=== PATIENT | female | born 1955 | race Caucasian/White ===

== ENCOUNTER 2017-01-16 07:58 | Day surgery (SDC) | payer OTHER ==
[~2017-01-16] VITALS: Ht 170.2 cm; Wt 113.8 kg
[~2017-01-16 07:58] MED LIST: 0.9% Sodium Chloride 1,000 ML IV SCH; LOSA50TA37 PO; METF500T4 PO; MINO50CA2 PO; Sodium Chloride LOK Flush 10 mL Syringe IV PRN; fentaNYL-PF 50 mCg/mL 2 mL Inj IVPUSH PRN
[2017-01-16 09:01] VITALS: BP 161/86; PULSE 88; RESP 18; O2SAT 99
[2017-01-16 09:50] VITALS: BP 126/65; PULSE 82; RESP 16; O2SAT 95
[2017-01-16 10:00] VITALS: BP 123/67; PULSE 81; RESP 16; O2SAT 94
[2017-01-16 10:10] VITALS: BP 92/47; PULSE 79; RESP 16; O2SAT 97
--- NOTE | 2017-01-16 10:43 | ENDO ---
[address] [address] ENDOSCOPY PROCEDURE PATIENT: YOLANDA SANCHEZ : 1955 MR#: [id number] ADMIT: 01/16/2017 JOB ID: [id number] DATE OF SERVICE: 01/16/2017 TYPE OF OPERATION: Colonoscopy with biopsy. PREOPERATIVE DIAGNOSIS(ES): Change in bowel habits. POSTOPERATIVE DIAGNOSIS(ES): 1. Small internal hemorrhoids. 2. An 8 mm, flat-based polyp seen in the ascending colon, status post biopsy. ANESTHESIA: Fentanyl 125 mcg, Versed mg IV administered. COMPLICATIONS: None. BLOOD LOSS: Minimal. DESCRIPTION OF PROCEDURE: After risks and benefits explained to the patient, informed consent was obtained. After anesthesia administered, colonoscope was then inserted from rectum to cecum. Mucosa carefully examined. Prep of the patient was excellent. After the procedure was done, the scope withdrawn and the procedure terminated. FINDINGS: Upon inspection of the anus, no masses, hemorrhoids, ulcers, or fissures that were seen. Throughout the entire examination, there was a broad-based, 8 mm polyp seen in the ascending colon which was first injected with normal saline lift but unable to snare. Afterwards, a biopsy was then performed with complete removal of the polyp, and a hemoclip was placed afterwards, given the fact there was minimal bleeding. Random biopsies taken from terminal ileum and random colon. Retroflexion showed small internal hemorrhoids. IMPRESSION: 1. Small internal hemorrhoids. 2. An 8-mm broad-based ascending colon polyp removed by cold biopsy forceps. RECOMMENDATION: Await pathology results. If tubular adenoma, then repeat colonoscopy in five years. Follow up with referring provider, Akanksha Mena PA-C, as an outpatient.
--- NOTE | 2017-01-17 11:14 | PATH ---
SURGICAL PATHOLOGY Attending Physician:Matt Marley MD CASE STATUS: Signed Out PATIENT NAME: YOLANDA SANCHEZ PID: [id number] : 1955 DATE COLLECTED:01/16/2017 15:41 SPECIMEN: 1: Small Intestine/Bowel, Biopsy 2: Colon, Biopsy 3: Colon, Biopsy CLINICAL HISTORY: 1). T.I BX 2). RANDOM COLON BX 3). ASCENDING COLON POLYP BX FINAL DIAGNOSIS: A. Terminal Ileum, Biopsy: Normal small bowel mucosa. No significant inflammation identified. No evidence of malignancy or dysplasia. B. Random Colon Biopsies: Normal colonic mucosa. No significant inflammation identified. No evidence of malignancy or dysplasia. C. Ascending Colon Polyp, Biopsy: Tubular adenoma. ICD10: D12.6 GROSS DESCRIPTION: The specimen is received in three formalin filled containers labeled with the patient's name. 1). The specimen is sublabeled "TI" and consists of a 0.7 x 0.3 x 0.2 CM portion of tissue which is entirely submitted in cassette 1A. 2). The specimen is sublabeled "random colon" and consists of multiple portions of tissue which aggregate to 0.5 x 0.5 x 0.3 CM. The specimen is entirely submitted in cassette 2A. 3). The specimen is sublabeled "ascending colon polyp" and consists of are multiple portions of tissue which aggregate to 0.3 x 0.3 x 0.2 CM. The specimen is entirely submitted in cassette 3A. 01/16/2017 [facility] ICD-9 CODES: CPT CODES: 1: 24416 2: 23266 3: 22058 Electronically Signed Out Baron Stephens MD [facility] Pathology [facility] [address], [place] [address] Technical component performed at [facility], [address] [place] [address] Ave[address], [place], [address]
== END 2017-01-16 23:59 | disposition home or self-care (01) ==
LOC: END 07:58
PROVIDERS: ATTEND Internal Medicine Gastroenterology
DX: D12.2 Benign neoplasm of ascending colon (principal); K64.8 Other hemorrhoids; K62.5 Hemorrhage of anus and rectum; F41.9 Anxiety disorder, unspecified; Z79.84 Long term (current) use of oral hypoglycemic drugs; Z83.71 Family history of colonic polyps; Z80.3 Family history of malignant neoplasm of breast
CPT/HCPCS: 45380; 45381; 99153; G0500; J2250; J3010; J7030